=== PATIENT | male | born 1955 | race Caucasian/White ===

== ENCOUNTER 2023-06-02 07:25 | Day surgery (SDC) | payer MEDICARE, MEDICAID ==
[~2023-06-02] VITALS: Ht 162.6 cm; Wt 92.2 kg
[~2023-06-02 07:25] MED LIST: CEFTRIAXONE SOD 1 GM/ DEXTROSE,ISO 50 ML PREMIX IV ONE
[2023-06-02] MEDS ORDERED: fentaNYL CITRATE/PF 100 MCG/2 ML AMP ONE (09:29)
[2023-06-02] MEDS ORDERED: ACETAMINOPHEN I.V. 1000 MG 100 ML IV ONE (09:30)
[2023-06-02] MEDS ORDERED: MIDAZOLAM HCL 2 MG/2 ML VIAL (VERSED) ONE (09:30)
[2023-06-02] MEDS ORDERED: NS IRRIG SOLN 1000 ML IR ONE (09:35)
[2023-06-02] MEDS ORDERED: SEVOFLURANE 15 MIN GAS INH ONE (09:35)
[2023-06-02] MEDS ORDERED: PROPOFOL 200MG/ 20ML VIAL (DIPRIVAN) IV ONE (09:35)
[2023-06-02] MEDS ORDERED: ROCURONIUM BROMIDE 10 MG/ML (ZEMURON) ONE (09:35)
[2023-06-02] MEDS ORDERED: LR 1,000 ML IV.SOLN IV ONE (09:35)
[2023-06-02] MEDS ORDERED: SUGAMMADEX SODIUM 200 MG/2 ML VIAL IV ONE (09:35)
[2023-06-02] MEDS ORDERED: ONDANSETRON HCL 4 MG/2 ML VIAL ONE (09:35)
[2023-06-02] MEDS ORDERED: fentaNYL CITRATE/PF 100 MCG/2 ML AMP IVP PRN ×2 (10:15)
[2023-06-02] MEDS ORDERED: ONDANSETRON HCL 4 MG/2 ML VIAL IVP PRN (10:15)
[2023-06-02] MEDS ORDERED: LR 1,000 ML IV ONE (10:15)
[2023-06-02] MEDS: HYDROmorphone 1 MG/ML INJ. CARTRIDGE IVP PRN (11:40)
[2023-06-02] MEDS ORDERED: HYDROmorphone 1 MG/ML INJ. CARTRIDGE ONE (11:45)
[2023-06-02 13:00] VITALS: O2SAT 95
[2023-06-02 14:30] VITALS: BP_SYST 126; PULSE 57; RESP 20
== END 2023-06-02 14:27 | disposition home or self-care (01) ==
LOC: SDS 07:25 → SMU 07:36 → SDS 14:27
PROVIDERS: ATTEND Urology
DX: N21.0 Calculus in bladder (principal); N40.0 Benign prostatic hyperplasia without lower urinary tract symptoms; I10 Essential (primary) hypertension; E78.5 Hyperlipidemia, unspecified; Z87.891 Personal history of nicotine dependence; Z96.653 Presence of artificial knee joint, bilateral; Z98.890 Other specified postprocedural states; Z79.899 Other long term (current) drug therapy
CPT/HCPCS: 52317; 52601; 87081; 71045; 88300; J3490; J0696; J3465; J2405; J2704; J3010; J1170; J7120; C1758; J0131; C1769